=== PATIENT | female | born 1980 | race Hispanic/Latino ===

== ENCOUNTER 2018-03-02 20:50 | Emergency (ER) | payer SELFPAY ==
[2018-03-02 22:30] LABS: Bilirubin Negative (Negative); Blood, Urine Negative (Negative); Clarity CLEAR (Clear); Glucose, Urine (Dipstick) Negative (Negative); Leukocyte Large (Negative); Nitrite Negative (Negative); Protein, Urine (Dipstick) Negative (Neg-Trace); Specific Gravity, Urine 1.005 (1.002-1.036); Urobilinogen 0.2 mg/dL (0.2-1.0)
[2018-03-02 22:37] LABS: Pregnancy Test - Urine (BHCG) Negative (Negative); Pregu Control Background? CLEAR/WHITE (CLR/WHITE); Pregu Control Bar Appear? YES (CONTROL BAR); Specific Gravity 1.005 (1.002-1.036)
[2018-03-02 22:40] LABS: Bacteria/HPF None Seen HPF (None Seen); Hyaline Casts/LPF 0-3 HYALINE CAST LPF (0-3 Hyaline); Pathc Cast-AUWi Flag 0.29 (0-2.49); RBC/HPF 0-3 HPF (0-3); WBC/HPF 0-3 HPF (0-3)
[2018-03-02] MEDS ORDERED: Lidocaine 1% w/Epinephrine 1:100K 20 ML VIAL ONE (23:27)
== END 2018-03-03 00:20 | disposition home or self-care (01) ==
LOC: ERS 20:50
DX: N76.0 Acute vaginitis (principal)
CPT/HCPCS: 36416; 81003; 81015; 81025; 87480; 87491; 87510; 87591; 87660; 99283; J2001

== ENCOUNTER 2018-05-16 04:50 | Inpatient (IN) | payer SELFPAY ==
[2018-05-16 05:50] LABS: CKMB 0.2 ng/mL (0-6.6); Troponin I Less than 0.010 ng/mL (< 0.028)
[2018-05-16 05:52] LABS: ALT (SGPT) 19 U/L (8-55); AST (SGOT) 18 U/L (5-34); Alkaline Phosphatase 85 U/L (40-150); Anion Gap 11 mmol/L (10-20); BUN (Urea Nitrogen) 6 mg/dL (7.0-18.7); Bilirubin, Total 0.6 mg/dL (0.2-1.2); CK (CPK) 29 U/L (29-168); Calc. Creatinine Clearance 0 mL/min (70-130); Calcium 8.5 mg/dL (7.8-10.44); Carbon Dioxide 23 mmol/L (22-29); Chloride 108 mmol/L (98-107); Estimated GFR-MDRD Greater than 90; Globulin 2.8 g/dL (2.4-3.5); Glucose 132 mg/dL (70-105); Potassium 3.2 mmol/L (3.5-5.1); Protein, Total 6.8 g/dL (6.0-8.3); Sodium 139 mmol/L (136-145)
[2018-05-16] MEDS ORDERED: Potassium Chloride 20 MEQ TAB ONE (06:17)
[2018-05-16 06:23] LABS: #Eosinphils 0.1 thou/uL (0.0-0.7); #Lymphocytes 3.2 thou/uL (1.20-3.40); #Monocytes 0.6 thou/uL (0.11-0.59); %Basophils 0.3 % (0.0-1.0); %Eosinophils 1.3 % (0.0-10.0); %Monocytes 5.6 % (0.0-10.0); %Neutrophils 63.9 % (42.0-75.0); Band 6 % (5-11); Elliptocytes SLIGHT = 2-5 cells (100X) (0-1/hpf); Eosinophils 1 % (0-10); Hemoglobin 6.9 g/dL (12.0-16.0); Hypochromia SLIGHT = 6-15 cells (100X) (0-5/hpf); Lymphocytes 35 % (21-51); MDiff Complete? YES; Mean Corpuscular HGB CONC 27.9 g/dL (32.0-36.0); Mean Corpuscular Hemoglobin 16.3 pg (27.0-31.0); Mean Corpuscular Volume 58.3 fL (78.0-98.0); Mean Platelet Volume 9.5 fL (7.4-10.4); Microcytosis MODERATE=15-30 cells (100X) (0-5/hpf); Monocytes 4 % (0-10); Neutrophil 54 % (42-75); PLT Morphology Comment Appears Adequate; Platelet Count 271 thou/uL (130-400); RBC Distribution Width 19.5 % (11.5-14.5); Target Cells SLIGHT = 2-5 cells (100X) (0-1/hpf)
[2018-05-16] MEDS ORDERED: Lorazepam 2 MG/ML VIAL ONE (06:23)
--- NOTE | 2018-05-16 08:50 | RAD ---
PORTABLE CHEST 1 VIEW: DATE: 05/16/18. TIME: 4:48 a.m. HISTORY: Chest pain, shortness of breath, unwitnessed seizure. FINDINGS: Comparison is made with the exam of 03/18/16. The heart size is normal. No focal areas of consolidation, pneumothorax, or pleural effusions are se en. IMPRESSION: No acute process. POS: [facility]
[2018-05-16] MEDS ORDERED: Acetaminophen 325 MG TAB ONE (09:18)
[2018-05-16] MEDS ORDERED: Potassium Chloride 20 MEQ TAB PO SCH (10:30)
--- NOTE | 2018-05-16 12:24 | HP ---
PRIMARY CARE PROVIDER: None. CHIEF COMPLAINT: Shortness of breath. HISTORY OF PRESENT ILLNESS: Ms. Browne is a pleasant 38-year-old lady, who was seen at [facility] on 05/16/2018. She reports that she has a history of seizures over the last 3 years, but has not been on any medications for the same. She also reports occasional chest pain, sometimes on the left side and sometimes on the right side. Around 3:00 a.m., she woke up with difficulty breathing. At the same time, she reports having chest discomfort. She reports that it was over the left side of her chest, radiating to the back, 5/10 at its worst, accompanied by shortness of breath and sweating. She also reports that the chest pain radiated to the jaw. EMS was called, because of patient's symptoms. When EMS arrived, she reportedly had a [id number]-[id number] seizure at home. She reports feeling tired and has generalized weakness. She denies any bleeding anywhere. REVIEW OF SYSTEMS: All other systems reviewed and found to be negative. PAST MEDICAL HISTORY: Seizures. PAST SURGICAL HISTORY: Left ankle surgery. FAMILY HISTORY: Heart disease in her grandfather. SOCIAL HISTORY: No history of tobacco use, alcohol use, or recreational drug use. ALLERGIES: MORPHINE. CURRENT MEDICATIONS: None. PHYSICAL EXAMINATION: GENERAL: Ms. Browne is awake and alert, not in acute distress. VITAL SIGNS: Blood pressure is 111/56, pulse 65, respiratory rate 16, and oxygen saturation 100% on 2 liters of oxygen. She is afebrile. EYES: No scleral icterus. She has conjunctival pallor. ENT: Moist mucosal membranes, no oropharyngeal erythema or exudates. NECK: Supple, nontender, trachea is midline. RESPIRATORY: Accessory muscles of breathing are not active. Chest wall movements are symmetric bilaterally. Lungs are clear to auscultation without wheeze, rhonchi, or crepitations. CARDIOVASCULAR: S1 and S2 are heard, regular. Peripheral pulses palpable. No carotid bruit, no pericardial rub. ABDOMEN: Soft, nontender, bowel sounds heard, no hepatomegaly, no splenomegaly. NEUROLOGIC: Cranial nerves II-XII are intact. Deep tendon reflexes are 2+. MUSCULOSKELETAL: Power is 5/5 in all 4 extremities. SKIN: No rashes or subcutaneous nodules. LYMPHATIC: No cervical lymphadenopathy. PSYCHIATRIC: Normal mood, normal affect, patient is oriented to person, place, and time. LABORATORY DATA: Ms. Browne's labs and investigations were reviewed. I reviewed her electrocardiogram, which shows normal sinus rhythm, no ST changes to suggest an acute coronary syndrome. I also reviewed her chest x-ray, which does not show any pulmonary infiltrates. She also had noncontrast CT scan of the brain, which, by my review, does not show any acute bleed. She has leukocytosis with 11,000 white cells, of which 54% are neutrophils, microcytic anemia with hemoglobin 6.9, normal platelet count, normal sodium, decreased potassium of 3.2 and an unremarkable liver profile. Troponin I is normal. ASSESSMENT AND PLAN: Ms. Browne is a pleasant 38-year-old lady, who was seen at [facility] on 05/16/2018. Her problem list includes: 1. Symptomatic anemia: Ms. Browne is presenting with symptomatic anemia, with chest pain and shortness of breath. She will be admitted to the hospital for further workup and management. She is currently receiving packed RBC transfusion as ordered by emergency room physician. We will initiate studies including iron studies, vitamin B12, and folic acid levels as well as a hemoglobin electrophoresis. We will also check reticulocyte count. We will also check stool for occult blood. 2. Chest pain: First troponin is normal. This is most likely secondary to demand ischemia. We will recheck her troponin. We will also evaluate for symptoms following packed RBC transfusion. 3. Hypokalemia: We will replace potassium. 4. Seizures: We will start patient on phenytoin for seizure disorder. We will consult Neurology Service. LEVEL OF RISK: High. LEVEL OF COMPLEXITY: High. MTDD
[2018-05-16 13:05] LABS: Reticulocyte Count 2.7 % (0.5-1.5)
[2018-05-16 13:12] LABS: Hemoglobin 7.6 g/dL (12.0-16.0)
[2018-05-16 13:15] LABS: Iron 16 ug/dL (50-170); Iron Binding Capacity, Total 411 mcg/dL (265-497)
[2018-05-16 13:21] LABS: Troponin I Less than 0.010 ng/mL (< 0.028)
[2018-05-16 13:22] LABS: BHCG - Serum Negative (NEGATIVE); Pregs Control Background? CLEAR/WHITE (CLR/WHITE); Pregs Control Bar Appear? YES (CONTROL BAR)
[2018-05-16 13:34] LABS: Ferritin 2.61 ng/mL (10-291)
[2018-05-16 13:48] LABS: Folate (Folic Acid) 5.8 ng/mL (7.0-31.4)
--- NOTE | 2018-05-16 13:49 | CON ---
DATE OF CONSULTATION: 05/16/2018 CONSULTING PHYSICIAN: Hospitalist Service. IMPRESSION: 1. Seizures. 2. Anemia. PLAN: 1. Dilantin 300 mg per day. 2. Office followup. HISTORY OF PRESENT ILLNESS: Ms. Browne is a 38-year-old female. She reportedly has had so me intermittent seizures for the last 2 years. Her last prior seizure was in September. She had a wi tnessed seizure in the emergency room. She came in with complaints of chest pain. She was noted to be significantly anemic. She had a witnessed generalized tonic-clonic seizure. She had a CT scan of the brain done, which was unremarkable. She denies any past history of meningitis, encephalitis, he ad injuries, or other neurologic problems. She has not seen any sign of bleeding from the standpoint of her urine or bowels. PAST MEDICAL HISTORY: Otherwise, negative. ALLERGIES: MORPHINE. SOCIAL HISTORY: No tobacco or alcohol. FAMILY HISTORY: Noncontributory. REVIEW OF SYSTEMS: Otherwise, only notable for fatigue. PHYSICAL EXAMINATION: GENERAL: She is a well-nourished, middle-aged woman, in no distress. HEENT: Pupils equal and reactive. Conjunctivae are clear. Oropharynx clear. NECK: Supple. EXTREMITIES: No cyanosis or edema. NEUROLOGIC EXAM: She is primarily Danish speaking. Speech is fluent and clear. Cranial nerves II- XII are intact. There are no focal deficits noted. No abnormal movements were seen. LABORATORY STUDIES: Showed unremarkable electrolytes. Hemoglobin was 6.9. SUMMARY: This is a middle-aged woman with seizures, sporadically for the last 2 years. I agree with trying her on Dilantin. I would be happy to follow up with her as an outpatient.
--- NOTE | 2018-05-16 15:44 | CT ---
PRELIMINARY REPORT/[facility]/EMERGENTY AFTER-HOURS PROCEDURE CT Head Without Intravenous Contrast CLINICAL HISTORY: 38 years old, female; Signs and symptoms; Other: Seizure; Patient HX: Witnessed seizure for 20 second s. Pt C/O headache TECHNIQUE: Axial computed tomography images of the head/brain without intravenous contrast. COMPARISON: No relevant prior studies available. FINDINGS: No definite acute skull fracture. Included paranasal sinuses are essentially clear. No acute intracranial hemorrhage or mass effect. Ventricle size is normal for age. No definite acute infarct by CT. MRI could be more sensitive/specific for detection, as clinically di rected. IMPRESSION: No acute intracranial bleed or mass effect. No definite acute infarct by CT, see above. Thank you for allowing us to participate in the care of your patient. Dictated and Authenticated by: Javi Holliday MD 05/16/2018 6:41 AM Central Time ([place] & [place]) FINAL REPORT CT BRAIN WITHOUT CONTRAST: I agree with the preliminary report given by Dr. Javi Holliday of [facility]. POS: [facility]
[2018-05-16 16:58] LABS: Troponin I Less than 0.010 ng/mL (< 0.028)
[2018-05-16] MEDS ORDERED: Sodium Ferric Gluconate 250 MG in Sodium Chloride 0.9% 250 ML 250 ML IVPB SCH (18:00)
[2018-05-16 18:48] LABS: Hemoglobin 7.1 g/dL (12.0-16.0)
--- NOTE | 2018-05-16 19:49 | CON ---
DATE OF CONSULTATION: 05/16/2018 GI INPATIENT CONSULTATION NOTE REQUESTING PHYSICIAN: Dr. Jimenez. REASON FOR CONSULTATION: Symptomatic anemia. HISTORY OF PRESENT ILLNESS: Latoya Browne is a 38-year-old woman who speaks Czech only. I am seeing her today with the assistance of an diplomatic interpreter. She was admitted to the hospital earlier tod ay after presenting with acute shortness of breath, chest pain, and diaphoresis. Early this morning, she had a witnessed 20-second seizure by EMS. She says she has had seizures over the past 3 years, this is untreated. Upon presentation, laboratory evaluation was significant for severe anemia with h emoglobin 6.9, this is microcytic with an MCV of 58.3. The patient is receiving 1 unit of RBC transf usion and other labs are pending including iron studies, folic acid and hemoglobin electrophoresis. The patient denies any primary gastrointestinal symptoms. There is no abdominal pain, nausea or vomiting, reflux, change in bowel habits, melena or hematochezia. She denies any overt bleeding from anywhere. There is no hematemesis, epistaxis or gross hematuria. She says her menstrual period s last 2-3 days and are fairly regular every month. She says she could not be at this time. She does recall a prior history of anemia during her previous , but she does not recall an y prior workup being done for it. She has never undergone EGD or colonoscopy. She has been trying t o reduce portions in an effort to lose weight and her friends report she has lost about 20 pounds rec ently just in the past few weeks. She says her mother had colon cancer at age 67. REVIEW OF SYSTEMS: Full review of systems including constitutional, head, eyes, ears, nose, throat, GI, , cardiovascular, respiratory, musculoskeletal, and neurologic systems is negative except as no mika in the HPI. PAST MEDICAL HISTORY: Seizure disorder; left ankle surgery; chronic anemia, unclear if this has been extensively worked up before. ALLERGIES: MORPHINE. OUTPATIENT MEDICATIONS: None. FAMILY HISTORY: She says her mother had colon cancer at age 67. Her grandfather had heart disease. SOCIAL HISTORY: No tobacco, alcohol, or drug use. She speaks Czech only. PHYSICAL EXAMINATION: VITAL SIGNS: Temperature 98.0, blood pressure 104/54, 100% oxygen saturation on room air, pulse 74. GENERAL: A 38-year-old woman, lying in bed comfortably, in no distress. She is a bit pale. SKIN: She is pale, no jaundice, no rash visible or palpable. EYES: No scleral icterus. Extraocular movements intact. ENT: Mucous membranes moist, no oral lesions. LYMPH: No submandibular or supraclavicular lymphadenopathy. THYROID: Nontender to palpation. HEART: Regular rate and rhythm. LUNGS: Clear to auscultation bilaterally. ABDOMEN: Bowel sounds present, soft and nontender to palpation throughout. EXTREMITIES: No peripheral edema. VESSELS: Radial pulses 2+ bilaterally. NEUROLOGICAL: Cranial nerves II-XII intact bilaterally. No focal deficits. LABORATORY STUDIES: Hemoglobin 6.9, MCV 58.3, WBC 11.0, platelets 271. Sodium 139, potassium 3.2, B UN 6, creatinine 0.71, glucose 132. LFTs all normal with total bilirubin 0.6, alkaline phosphatase 8 5, AST 18, ALT 19. CK 29, troponin negative. Albumin 4.0 reticulocyte count is 2.7. IMAGING STUDIES: Chest x-ray showed no acute processes. Brain CT is pending. Iron studies, folic a elin, test, hemoglobin electrophoresis and fecal occult blood tests are all ordered and pend ing. ASSESSMENT AND PLAN: 1. Microcytic anemia, severe, symptomatic. 2. Seizure. Looking back to her prior labs, the patient does have a chronic anemia. Back in 2012, hemoglobin was 9 and this was microcytic. In 2013, hemoglobin was 12 and MCV is normal, but then again in 2016, he moglobin was 8 and it was again microcytic. It does not appear this has been extensively worked up b adolfo. We need to await results of iron studies, folic acid, test, hemoglobin electrophore sis and FOBT. I will also add for vitamin B12 level to be drawn. The microcytosis is suggestive of possible iron deficiency anemia. If she is iron deficient, then it would certainly be reasonable to proceed with endoscopic investigation to rule out an occult gastrointestinal bleeding lesion. She do es have this family history of colon cancer in her mother, though her mother was at age 67 at that ti me. Particularly since she had a witnessed seizure earlier today, I would prefer to let her eat today, as sure no recurrence of seizure, and we will follow up the labs with her tomorrow. If she has had no f urther seizure activity and if labs do demonstrate iron deficiency and no other clear etiology of the anemia, then I would recommend giving her bowel preparation tomorrow night in preparation for EGD an d colonoscopy the following day. I discussed this with the patient and her friends and they are in a greement. Thank you for the consultation. We will follow up with the patient with labs tomorrow. Please have her on a clear liquid diet tomorrow morning in case we decide to proceed with bowel preparation tomor row evening.
[2018-05-16 22:53] LABS: Troponin I Less than 0.010 ng/mL (< 0.028)
[2018-05-16] MEDS: Acetaminophen 325 MG TAB PO PRN (23:45)
[2018-05-17] MEDS ORDERED: GoLYTELY 4,000 ml Bottle PO SCH (08:15)
--- NOTE | 2018-05-17 08:20 | PRG ---
DATE OF SERVICE: 05/17/2018 SUBJECTIVE: The patient has had no further seizure activity since yesterday. She continues to compl ain of some pain in her upper right chest as well as her back. There is no abdominal pain, no vomiti ng. Some laboratory studies have returned. Serum test is negative. She is iron deficient and folic acid deficient. OBJECTIVE: VITAL SIGNS: Temperature 97.7, pulse 62, blood pressure 105/53, 100% oxygen saturation on room air. GENERAL: No acute distress. HEART: Regular rate and rhythm. LUNGS: Clear to auscultation bilaterally. ABDOMEN: Soft and nontender to palpation. EXTREMITIES: No peripheral edema. LABORATORY STUDIES: Hemoglobin went up to 7.6 with 1 unit RBC transfusion, back down to 7.1 this mor cristin. Ferritin is only 2.6. Iron 16, TIBC 411. Troponins were negative x3. Vitamin B12 is normal at 454. Folic acid level was low at 5.8. Serum test is negative. Hemoglobin electrophore sis is pending. ASSESSMENT AND PLAN: 1. Iron deficiency anemia, severe, symptomatic. 2. Folic acid deficiency. 3. Seizure disorder. I discussed with the patient this morning that she is both iron deficient and folic acid deficient. Both of these could be contributing to her anemia. In addition, we are waitin g on the results of the hemoglobin electrophoresis to rule out a hemoglobinopathy. I do think it wou ld be worthwhile to proceed with EGD and colonoscopy to rule out occult gastrointestinal lesion under lying her iron deficiency anemia. I would plan to get duodenal biopsies at the time of the procedure to rule out celiac disease. The patient understands and agrees with the plan. We will have her on a clear liquid diet today and administer bowel preparation this evening and plan for the procedure to stephanie. Please call with any questions or concerns.
[2018-05-17] MEDS: Acetaminophen 325 MG TAB PO PRN ×2 (08:23→17:12)
[2018-05-17] MEDS ORDERED: Enoxaparin Sodium 40 MG/0.4 ML SYRINGE SC SCH (09:00)
[2018-05-17] MEDS ORDERED: Ferrous Sulfate 325 MG TAB PO SCH (10:45)
[2018-05-17 10:59] LABS: #Basophils 0.1 thou/uL (0.0-0.2); #Eosinphils 0.2 thou/uL (0.0-0.7); #Lymphocytes 2.9 thou/uL (1.20-3.40); #Monocytes 0.5 thou/uL (0.11-0.59); #Neutrophils 6.1 thou/uL (1.40-6.50); %Basophils 1.2 % (0.0-1.0); %Lymphocytes 29.9 % (21.0-51.0); %Monocytes 4.7 % (0.0-10.0); %Neutrophils 62.2 % (42.0-75.0); Hemoglobin 7.5 g/dL (12.0-16.0); Mean Corpuscular HGB CONC 29.2 g/dL (32.0-36.0); Mean Corpuscular Hemoglobin 17.8 pg (27.0-31.0); Mean Corpuscular Volume 60.8 fL (78.0-98.0); Mean Platelet Volume 9.2 fL (7.4-10.4); Platelet Count 257 thou/uL (130-400); RBC Distribution Width 22.9 % (11.5-14.5); Red Blood Cell (RBC) Count 4.25 mill/uL (4.20-5.40); White Blood Cell (WBC) Count 9.7 thou/uL (4.8-10.8)
[2018-05-17 11:08] LABS: Anion Gap 11 mmol/L (10-20); BUN (Urea Nitrogen) 5 mg/dL (7.0-18.7); Calc. Creatinine Clearance 149 mL/min (70-130); Calcium 8.6 mg/dL (7.8-10.44); Carbon Dioxide 24 mmol/L (22-29); Chloride 106 mmol/L (98-107); Estimated GFR-MDRD Greater than 90; Glucose 156 mg/dL (70-105); Potassium 3.6 mmol/L (3.5-5.1); Sodium 137 mmol/L (136-145)
[2018-05-17 11:13] LABS: Troponin I Less than 0.010 ng/mL (< 0.028)
[2018-05-17 12:05] LABS: Hypochromia MODERATE=16-30 cells (100X) (0-5/hpf); MDiff Complete? YES; Microcytosis MARKED = >30 cells (100X) (0-5/hpf); Ovalocytes SLIGHT = 2-5 cells (100X) (0-1/hpf); PLT Morphology Comment Appears Adequate; Polychromasia MODERATE = 3-4 cells (100X) (0-2/hpf); Tear Drops SLIGHT = 2-5 cells (100X) (0-1/hpf)
[2018-05-17 17:14] LABS: Troponin I Less than 0.010 ng/mL (< 0.028)
[2018-05-18] MEDS: Acetaminophen 325 MG TAB PO PRN (02:10)
[2018-05-18 06:35] LABS: Anion Gap 9 mmol/L (10-20); BUN (Urea Nitrogen) 4 mg/dL (7.0-18.7); Calc. Creatinine Clearance 155 mL/min (70-130); Calcium 8.6 mg/dL (7.8-10.44); Carbon Dioxide 27 mmol/L (22-29); Chloride 107 mmol/L (98-107); Estimated GFR-MDRD Greater than 90; Glucose 140 mg/dL (70-105); Potassium 3.4 mmol/L (3.5-5.1); Sodium 140 mmol/L (136-145)
[2018-05-18 06:41] LABS: Hemoglobin 7.1 g/dL (12.0-16.0); Mean Corpuscular HGB CONC 29.1 g/dL (32.0-36.0); Mean Corpuscular Hemoglobin 17.7 pg (27.0-31.0); Mean Platelet Volume 9.3 fL (7.4-10.4); Platelet Count 252 thou/uL (130-400); RBC Distribution Width 22.4 % (11.5-14.5); Red Blood Cell (RBC) Count 4.01 mill/uL (4.20-5.40); White Blood Cell (WBC) Count 11.2 thou/uL (4.8-10.8)
--- NOTE | 2018-05-18 06:59 | EKG ---
Test Reason : Blood Pressure : / mmHG Vent. Rate : 065 BPM Atrial Rate : 065 BPM P-R Int : 158 ms QRS Dur : 098 ms QT Int : 452 ms P-R-T Axes : 021 -16 003 degrees QTc Int : 470 ms Normal sinus rhythm Inferior infarct , age undetermined (Doubtful) Abnormal ECG When compared with ECG of 16-MAY-2018 05:01, (Unconfirmed) No significant change was found Confirmed by SRI SCOTT ([id number]) on 05/18/2018 6:59:28 AM Referred By: ELEN Confirmed By:SRI SCOTT
[2018-05-18] MEDS: Ferrous Sulfate 325 MG TAB PO SCH (07:59)
[2018-05-18 08:28] LABS: #Eosinphils 0.2 thou/uL (0.0-0.7); #Lymphocytes 2.7 thou/uL (1.20-3.40); #Monocytes 0.6 thou/uL (0.11-0.59); #Neutrophils 7.8 thou/uL (1.40-6.50); %Basophils 0.4 % (0.0-1.0); %Eosinophils 1.8 % (0.0-10.0); %Lymphocytes 23.7 % (21.0-51.0); %Monocytes 4.9 % (0.0-10.0); %Neutrophils 69.3 % (42.0-75.0); Anisocytosis MODERATE=16-30 cells (100X) (0-5/hpf); Hypochromia SLIGHT = 6-15 cells (100X) (0-5/hpf); MDiff Complete? YES; Microcytosis MODERATE=15-30 cells (100X) (0-5/hpf); Ovalocytes MODERATE= 6-15 cells (100X) (0-1/hpf); PLT Morphology Comment Appears Adequate; Polychromasia MODERATE = 3-4 cells (100X) (0-2/hpf); Tear Drops SLIGHT = 2-5 cells (100X) (0-1/hpf)
--- NOTE | 2018-05-18 10:51 | PDOC.PN ---
- Subjective Encounter Start Date: 05/18/18 Encounter Start Time: 07:00 Pt seen for followup re: symptomatic anemia. Denies chest pain. - Objective MAR Reviewed: Yes Vital Signs & Weight: Vital Signs (12 hours) Temp Pulse Resp BP Pulse Ox 05/18/18 08:00 98.3 F 61 16 05/18/18 07:35 98.3 F 61 16 97/51 L 98 05/18/18 04:00 99.2 F 74 18 110/51 L 96 05/18/18 00:00 98.4 F 66 18 99/50 L 100 Weight Admit Weight 197 lb Weight 196 lb 4.8 oz I&O: 05/17/18 05/18/18 05/19/18 06:59 06:59 06:59 Intake Total 720 5510 Balance 720 5510 Result Diagrams: 05/18/18 05:47 05/18/18 05:47 EKG Reviewed by me: Yes (Tele: NSR) Phys Exam - Physical Examination Constitutional: NAD HEENT: moist MMs, sclera anicteric, oral pharynx no lesions, 2+ tonsils conjunctival pallor Neck: no nodes, no JVD, supple, full ROM Respiratory: no wheezing, no rales, no rhonchi, clear to auscultation bilateral Cardiovascular: RRR, no rub S1, s2 Gastrointestinal: soft, non-tender, no distention, positive bowel sounds Neurological: moves all 4 limbs Psychiatric: normal affect, A&O x 3 Dx/Plan (1) Symptomatic anemia Code(s): D64.9 - ANEMIA, UNSPECIFIED Status: Acute Comment: s/p pRBC transfusion, iron infusion. For scope today. (2) Hypokalemia Code(s): E87.6 - HYPOKALEMIA Status: Acute Comment: replace potassium (3) Seizure Code(s): R56.9 - UNSPECIFIED CONVULSIONS Status: Acute Comment: pt has been started on phenytoin (4) Chest pain Code(s): R07.9 - CHEST PAIN, UNSPECIFIED Status: Resolved - Plan * . Review of Systems - Review of Systems Constitutional: negative: fever, chills, sweats, weakness, malaise Respiratory: negative: Cough, Shortness of Breath, SOB with Excertion, Pleuritic Pain, Wheezing Cardiovascular: negative: chest pain, palpitations, orthopnea, paroxysmal nocturnal dyspnea, edema, light headedness Gastrointestinal: negative: Nausea, Vomiting, Abdominal Pain, Diarrhea, Constipation, Melena, Hematochezia Genitourinary: negative: Dysuria, Frequency, Incontinence, Hematuria, Retention Skin: negative: Rash, Lesions, Aubrey, Bruising Neurological: Other (headache) - Medications/Allergies Allergies/Adverse Reactions: Allergies Allergy/AdvReac Type Severity Reaction Status Date / Time morphine Allergy Verified 05/16/18 11:08 Medications: Current Medications Acetaminophen (Tylenol) 650 mg PO Q6H PRN PRN Reason: Headache/Fever or Pain Last Admin: 05/18/18 02:10 Dose: 650 mg Ferrous Sulfate (Feosol) 325 mg PO QAM-[facility] Last Admin: 05/18/18 07:59 Dose: 325 mg Phenytoin Sodium (Dilantin Er) 100 mg PO TID [facility] Last Admin: 05/18/18 07:59 Dose: 100 mg
[2018-05-18] MEDS ORDERED: Ondansetron HCl/PF 4 MG/2 ML Vial IVP PRN (11:09)
[2018-05-18] MEDS ORDERED: Promethazine HCl 25 MG/ML VIAL SLOW IVP PRN (11:09)
[2018-05-18] MEDS ORDERED: Promethazine HCl 25 MG/ML VIAL IM PRN (11:09)
[2018-05-18] MEDS ORDERED: Potassium Chloride 20 MEQ TAB PO SCH (11:15)
--- NOTE | 2018-05-18 12:36 | OP ---
DATE OF PROCEDURE: 05/18/2018 SURGEON: Donald Bailey M.D. PREOPERATIVE DIAGNOSES: 1. Iron deficiency anemia, chronic. 2. Fecal occult blood test negative. POSTOPERATIVE DIAGNOSES: 1. Mild nodular gastritis, appearance is very consistent with H. pylori, biopsies obtained. 2. Normal duodenum to the third portion. Biopsies obtained to rule out celiac. 3. No evidence or source of GI bleeding or blood loss in the upper endoscopy. 4. Colonoscopy notable for diminutive polyp in the descending colon by cold snare polypectomy. 5. No findings to suggest a source of chronic gastrointestinal blood loss in the colon. RECOMMENDATIONS: Await biopsies. If there are no findings of celiac disease, I would strongly consi oral gynecologic sources for this patient's iron deficiency anemia in light of her negative endoscopy findings, negative history for GI bleeding and negative fecal occult blood test. ANESTHESIA: TIA. PROCEDURE IN DETAIL: After the patient was informed of the risks, benefits, possible complications o f endoscopy including perforation, bleeding, reaction to medication, and aspiration, informed consent was obtained. The patient brought to endoscopy suite where she was sedated in gradual fashion. Onc e she was comfortable endoscope was advanced in the orifice, advanced in the esophagus, stomach, seco nd and third portion of duodenum and slowly removed. There was good visualization of mucosa. There were no masses, lesions or arteriovenous malformations. There was mild gastritis, but with a very fi ne reticular nodular pattern without erythema, exudate or ulcers or erosions. Biopsies were taken to rule out H. pylori. Retroflexed views in the stomach were normal. The esophagus was normal. Duode num was normal to the third portion. Biopsies were taken to rule out celiac. The scope was then rem italo. The patient was turned in the room and a rectal exam was performed. The endoscope was advanced in th e anal canal to the colon to the cecum was identified by the ileocecal valve and appendiceal orifice. There was 1 diminutive polyp in the descending colon which was removed by cold snare polypectomy. There was also some mild diverticulosis coli. Retroflexed views in the rectum were normal. The scop e was removed. The patient tolerated the procedure well with no complications.
[2018-05-18] MEDS ORDERED: PHENYLEPHRINE-NS 100 MCG/ML 10 ML SYRINGE ONE (14:25)
[2018-05-18] MEDS ORDERED: PROPOFOL 200 MG/20 ML VIAL ONE (14:25)
[2018-05-18] MEDS ORDERED: ePHEDrine/0.9% NaCl/PF SYRINGE 50 mg/10 ml ONE (14:25)
--- NOTE | 2018-05-18 14:28 | PDOC.PN ---
- Subjective Encounter Start Date: 05/17/18 Encounter Start Time: 15:00 (Late entry) Pt seen for followup re: symptomatic anemia. feels better. Occ chest pain, no fevers or chills. - Objective Vital Signs & Weight: Vital Signs (12 hours) Temp Pulse Resp BP Pulse Ox 05/18/18 12:46 98.1 F 68 16 107/59 L 100 05/18/18 08:00 98.3 F 61 16 05/18/18 07:35 98.3 F 61 16 97/51 L 98 05/18/18 04:00 99.2 F 74 18 110/51 L 96 Weight Admit Weight 197 lb Weight 196 lb 4.8 oz I&O: 05/17/18 05/18/18 05/19/18 06:59 06:59 06:59 Intake Total 720 5510 Balance 720 5510 Result Diagrams: 05/18/18 05:47 05/18/18 05:47 Phys Exam - Physical Examination Constitutional: NAD HEENT: moist MMs, sclera anicteric, oral pharynx no lesions, 2+ tonsils pallor Neck: no nodes, no JVD, supple, full ROM Respiratory: no wheezing, no rales, no rhonchi, clear to auscultation bilateral Cardiovascular: RRR, no rub S1, s2 Gastrointestinal: soft, non-tender, no distention, positive bowel sounds Musculoskeletal: no edema Neurological: moves all 4 limbs Lymphatic: no nodes Psychiatric: normal affect Dx/Plan (1) Symptomatic anemia Code(s): D64.9 - ANEMIA, UNSPECIFIED Status: Acute Comment: s/p pRBC transfusion, low iron, for iron treatment. (2) Seizure Code(s): R56.9 - UNSPECIFIED CONVULSIONS Status: Acute Comment: started on phenytoin (3) Chest pain Code(s): R07.9 - CHEST PAIN, UNSPECIFIED Status: Acute Comment: likely due to demand ischemia, check EKG, troponin - Plan * . Review of Systems - Review of Systems Constitutional: negative: fever, chills, sweats, weakness, malaise Respiratory: negative: Cough, Shortness of Breath, SOB with Excertion, Pleuritic Pain, Wheezing Cardiovascular: chest pain. negative: palpitations, orthopnea, paroxysmal nocturnal dyspnea, edema, light headedness Gastrointestinal: negative: Nausea, Vomiting, Abdominal Pain, Diarrhea, Constipation, Melena, Hematochezia Genitourinary: negative: Dysuria, Frequency, Incontinence, Hematuria, Retention Musculoskeletal: negative: Neck Pain, Shoulder Pain, Arm Pain, Back Pain, Hand Pain, Leg Pain, Foot Pain - Medications/Allergies Allergies/Adverse Reactions: Allergies Allergy/AdvReac Type Severity Reaction Status Date / Time morphine Allergy Verified 05/16/18 11:08 Medications: Current Medications Acetaminophen (Tylenol) 650 mg PO Q6H PRN PRN Reason: Headache/Fever or Pain Last Admin: 05/18/18 02:10 Dose: 650 mg Ferrous Sulfate (Feosol) 325 mg PO [facility]AM[facility] Last Admin: 05/18/18 07:59 Dose: 325 mg Phenytoin Sodium (Dilantin Er) 100 mg PO TID [facility] Last Admin: 05/18/18 07:59 Dose: 100 mg
[2018-05-18 20:10] LABS: Hemoglobin A 98.2 % (96.4-98.8); Hemoglobin A2 1.8 % (1.8-3.2); Hemoglobin F 0 % (0.0-2.0); Interpretation Note: (.)
[2018-05-19 05:51] LABS: Anion Gap 11 mmol/L (10-20); BUN (Urea Nitrogen) 6 mg/dL (7.0-18.7); Calc. Creatinine Clearance 148 mL/min (70-130); Carbon Dioxide 26 mmol/L (22-29); Chloride 105 mmol/L (98-107); Estimated GFR-MDRD Greater than 90; Glucose 119 mg/dL (70-105); Potassium 3.8 mmol/L (3.5-5.1); Sodium 138 mmol/L (136-145)
[2018-05-19 06:18] LABS: #Basophils 0.1 thou/uL (0.0-0.2); #Eosinphils 0.2 thou/uL (0.0-0.7); #Lymphocytes 3.1 thou/uL (1.20-3.40); #Monocytes 0.5 thou/uL (0.11-0.59); #Neutrophils 6.8 thou/uL (1.40-6.50); %Basophils 0.8 % (0.0-1.0); %Eosinophils 1.8 % (0.0-10.0); %Lymphocytes 28.8 % (21.0-51.0); %Neutrophils 63.7 % (42.0-75.0); Burr Cells SLIGHT = 2-5 cells (100X) (0-1/hpf); Hemoglobin 7.8 g/dL (12.0-16.0); Hypochromia SLIGHT = 6-15 cells (100X) (0-5/hpf); MDiff Complete? YES; Mean Corpuscular HGB CONC 29.4 g/dL (32.0-36.0); Mean Corpuscular Hemoglobin 18.1 pg (27.0-31.0); Mean Corpuscular Volume 61.4 fL (78.0-98.0); Mean Platelet Volume 9.3 fL (7.4-10.4); Microcytosis MODERATE=15-30 cells (100X) (0-5/hpf); Ovalocytes SLIGHT = 2-5 cells (100X) (0-1/hpf); PLT Morphology Comment Appears Adequate; Platelet Count 258 thou/uL (130-400); RBC Distribution Width 23.6 % (11.5-14.5); Red Blood Cell (RBC) Count 4.32 mill/uL (4.20-5.40); White Blood Cell (WBC) Count 10.7 thou/uL (4.8-10.8)
[2018-05-19] MEDS: Ferrous Sulfate 325 MG TAB PO SCH (08:23)
[2018-05-19 12:48] VITALS: BMI 29.8
--- NOTE | 2018-05-19 18:17 | PDOC.PN ---
- Subjective Encounter Start Date: 05/19/18 Encounter Start Time: 10:40 Pt seen for followup re; chest pain. Reports on and off chest pain, no fevers or chills. - Objective Vital Signs & Weight: Vital Signs (12 hours) Temp Pulse Resp BP Pulse Ox 05/19/18 11:47 97.8 F 65 16 107/63 98 05/19/18 07:47 98.1 F 70 16 05/19/18 07:43 98.1 F 70 16 94/50 L 95 Weight Admit Weight 197 lb Weight 196 lb 4.8 oz I&O: 05/18/18 05/19/18 05/20/18 06:59 06:59 06:59 Intake Total 5510 1015 Balance 5510 1015 Result Diagrams: 05/19/18 05:07 05/19/18 05:07 Phys Exam - Physical Examination Constitutional: NAD HEENT: moist MMs, sclera anicteric, 2+ tonsils pallor Neck: no nodes, no JVD, supple, full ROM Respiratory: no wheezing, no rales, no rhonchi, clear to auscultation bilateral Cardiovascular: RRR, no rub S1, s2 Gastrointestinal: soft, non-tender, no distention, positive bowel sounds Neurological: moves all 4 limbs Psychiatric: normal affect Dx/Plan (1) Chest pain Code(s): R07.9 - CHEST PAIN, UNSPECIFIED Status: Acute Comment: stress test to r/o cardiac etiology (2) Symptomatic anemia Code(s): D64.9 - ANEMIA, UNSPECIFIED Status: Acute Comment: hemogolobin stable, continue iron (3) Seizure Code(s): R56.9 - UNSPECIFIED CONVULSIONS Status: Acute Comment: continue phenytoin - Plan * . Review of Systems - Review of Systems Constitutional: negative: fever, chills, sweats, weakness, malaise Respiratory: negative: Cough, Shortness of Breath, SOB with Excertion, Pleuritic Pain, Wheezing Cardiovascular: chest pain. negative: palpitations, orthopnea, paroxysmal nocturnal dyspnea, edema, light headedness Gastrointestinal: negative: Nausea, Vomiting, Abdominal Pain, Diarrhea, Constipation, Melena, Hematochezia Genitourinary: negative: Dysuria, Frequency, Incontinence, Hematuria, Retention Skin: negative: Rash, Lesions, Aubrey, Bruising - Medications/Allergies Allergies/Adverse Reactions: Allergies Allergy/AdvReac Type Severity Reaction Status Date / Time morphine Allergy Verified 05/16/18 11:08 Medications: Current Medications Acetaminophen (Tylenol) 650 mg PO Q6H PRN PRN Reason: Headache/Fever or Pain Last Admin: 05/18/18 02:10 Dose: 650 mg Ferrous Sulfate (Feosol) 325 mg PO QAM[facility] Last Admin: 05/19/18 08:23 Dose: 325 mg Phenytoin Sodium (Dilantin Er) 100 mg PO TID [facility] Last Admin: 05/19/18 16:08 Dose: Not Given
[2018-05-20 06:13] LABS: Anion Gap 11 mmol/L (10-20); BUN (Urea Nitrogen) 8 mg/dL (7.0-18.7); Calc. Creatinine Clearance 137 mL/min (70-130); Carbon Dioxide 26 mmol/L (22-29); Chloride 104 mmol/L (98-107); Estimated GFR-MDRD 83; Glucose 145 mg/dL (70-105); Potassium 3.8 mmol/L (3.5-5.1); Sodium 137 mmol/L (136-145)
[2018-05-20 06:47] LABS: Anisocytosis MODERATE=16-30 cells (100X) (0-5/hpf); Band 2 % (5-11); Elliptocytes SLIGHT = 2-5 cells (100X) (0-1/hpf); Eosinophils 2 % (0-10); Hemoglobin 8.1 g/dL (12.0-16.0); Hypochromia SLIGHT = 6-15 cells (100X) (0-5/hpf); Large Platelets SLIGHT; Lymphocytes 28 % (21-51); MDiff Complete? YES; Mean Corpuscular HGB CONC 29.3 g/dL (32.0-36.0); Mean Corpuscular Hemoglobin 18.1 pg (27.0-31.0); Mean Corpuscular Volume 61.9 fL (78.0-98.0); Mean Platelet Volume 9.4 fL (7.4-10.4); Microcytosis MODERATE=15-30 cells (100X) (0-5/hpf); Monocytes 5 % (0-10); Neutrophil 63 % (42-75); Nucleated RBC 1 % (0); PLT Morphology Comment Appears Adequate; Platelet Count 247 thou/uL (130-400); Polychromasia SLIGHT = 2-3 cells (100X) (0-2/hpf); RBC Distribution Width 25.7 % (11.5-14.5); Red Blood Cell (RBC) Count 4.48 mill/uL (4.20-5.40); White Blood Cell (WBC) Count 10.8 thou/uL (4.8-10.8)
[2018-05-20] MEDS ORDERED: Heparin 0 ML ONE (06:47)
[2018-05-20] MEDS: Ferrous Sulfate 325 MG TAB PO SCH (08:48)
[2018-05-20 11:46] VITALS: BP 106/59; TEMP 98.4
--- NOTE | 2018-05-20 13:38 | NM ---
RADIONUCLIDE STRESS REST MYOCARDIAL PERFUSION SCAN WITH CT ATTENUATION CORRECTION AND SPECT IMAGING LEFT VENTRICULAR WALL MOTION EVALUATION AND EJECTION FRACTION: History: Chest pain. FINDINGS: Adenosine protocol. Homogeneous uptake of radiotracer throughout the left ventricular myocardium on t he stress and rest images. No focal perfusion defect or reversibility. QGS analysis of gated SPECT im ages shows no focal wall motion abnormalities. Ejection fraction calculated at 66%. IMPRESSION: Normal myocardial perfusion scan. Normal LVEF POS: [facility]
[2018-05-20] MEDS ORDERED: ADENOSINE 60 MG/20 ML VIAL ONE (13:45)
[2018-05-20 14:46] LABS: Albumin 4.4 g/dL (3.5-5.0); Dilantin 5.3 ug/mL (10.0-20.0)
--- NOTE | 2018-05-20 23:34 | DIS ---
DATE OF ADMISSION: 05/16/2018 DATE OF DISCHARGE: 05/20/2018 PRIMARY CARE PHYSICIAN: Dr. Evie Church. DISCHARGE DIAGNOSES: 1. Symptomatic anemia. 2. Chest pain. 3. Iron deficiency. 4. Hypokalemia. 5. Seizure. CONSULTATIONS DURING THIS HOSPITALIZATION: Gastroenterology, Dr. Javi Fernandez and neurology, Dr. Zachary Nunez. DISCHARGE MEDICATIONS: Ferrous sulfate 325 mg daily, phenytoin sodium 200 mg 2 times a day. CONDITION OF PATIENT ON THE DAY OF DISCHARGE: Stable. I assess Ms. Browne on the day of discharge. She denies any chest pain or shortness of breath. Vital signs are stable. S1 and S2 are heard, re gular. Lungs are clear to auscultation bilaterally. HOSPITAL COURSE: Ms. Browne is a pleasant 38-year-old lady who was admitted to [facility] on 05/16/2018 for symptomatic anemia and seizure. Please refer to my history and physi jasmyn note dated 05/16/2018 for further details. She was seen by Neurology Service. She was started o n phenytoin. Her phenytoin level was checked on the day of discharge and was subtherapeutic. She wa s initially started on phenytoin 100 mg 3 times a day. This dose has been increased to 200 mg two ti mes a day on the day of discharge. She will need her phenytoin levels checked in 5 days' time to her primary care provider's office. In terms of anemia, she was found to be iron-deficient. She received intravenous iron. She was also started on oral iron. She also received packed RBC transfusion. Her hemoglobin remained stable. She underwent gastroscopy on 05/18/2018, which showed mild nodular gastritis, appearance very consist ent with Helicobacter pylori, biopsies were obtained. She had normal duodenum to the third portion. Biopsies were obtained to rule out celiac disease. There was no evidence or source of GI bleeding o r blood loss in the upper endoscopy. She also had colonoscopy which was notable for a diminutive zachary yp in the descending colon, she had cold-snare polypectomy. 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 Gastroenterology Service has ordered test to rule out celiac disease and we will follow up with patient as outpatient. Stomach biopsy showed chronic inactive gastritis. No Helicobacter pylori organisms were identified. Colon polyp was tubular adenoma. There was no high- grade dysplasia or malignancy. She had on and off chest pain during this hospitalization. For that reason, she underwent nuclear st ress test, which was normal. Left ventricular ejection fraction was 66%. Many thanks for allowing me to participate in your patient's care. Please feel free to contact me wi th any questions or concerns. On the day of discharge, she has sodium 137, potassium 3.8, creatinine 0.77, phenytoin level 5.3. Wh ite count 10,800, hemoglobin 8.1, and platelet count 247,000. DISCHARGE DESTINATION: Home. TOTAL AMOUNT OF TIME SPENT COORDINATING THIS DISCHARGE: 33 minutes.
== END 2018-05-20 16:21 | disposition home or self-care (01) | DRG 812 ==
LOC: ERS 04:50 → 2SE 07:28
PROVIDERS: ADMIT Internal Medicine; ATTEND Internal Medicine
PROC: 30233N1 Transfusion of Nonautologous Red Blood Cells into Peripheral Vein, Percutaneous Approach (ICD-10-PCS; 2018-05-16)
PROC: 0DB98ZX Excision of Duodenum, Via Natural or Artificial Opening Endoscopic, Diagnostic (ICD-10-PCS; principal; 2018-05-18)
PROC: 0DB68ZX Excision of Stomach, Via Natural or Artificial Opening Endoscopic, Diagnostic (ICD-10-PCS; 2018-05-18)
PROC: 0DBM8ZX Excision of Descending Colon, Via Natural or Artificial Opening Endoscopic, Diagnostic (ICD-10-PCS; 2018-05-18)
DX: D50.9 Iron deficiency anemia, unspecified (principal); G40.409 Other generalized epilepsy and epileptic syndromes, not intractable, without status epilepticus; E87.6 Hypokalemia; K29.50 Unspecified chronic gastritis without bleeding; K57.30 Diverticulosis of large intestine without perforation or abscess without bleeding; D12.4 Benign neoplasm of descending colon; R07.9 Chest pain, unspecified; Z88.5 Allergy status to narcotic agent
CPT/HCPCS: 36415; 36430; 70450; 71045; 78452; 80048; 80053; 80185; 82040; 82274; 82553; 82607; 82728; 82746; 83021; 83516; 83540; 83550; 84484; 84703; 85025; 85046; 85060; 86850; 86900; 86901; 88305; 88312; 93005; 93010; 93017; 94760; 96374; A9500; J0153; J1644; J2060; J2704; J2916; J7050; P9016

== ENCOUNTER 2019-02-03 21:33 | Emergency (ER) | payer SELFPAY ==
[2019-02-03] MEDS ORDERED: Ketorolac Tromethamine 30 MG/ML VIAL ONE (22:30)
[2019-02-03] MEDS ORDERED: Adacel (T-DAP) 0.5 ML SYRINGE ONE (22:30)
== END 2019-02-03 23:02 | disposition home or self-care (01) ==
LOC: ERS 21:33
DX: T23.102A Burn of first degree of left hand, unspecified site, initial encounter (principal); X11.8XXA Contact with other hot tap-water, initial encounter
CPT/HCPCS: 90471; 90715; 96372; J1885

== ENCOUNTER 2019-04-06 08:17 | Outpatient (CLI) | payer MEDICAID ==
--- NOTE | 2019-04-06 08:46 | MMO ---
Bilateral MAMMO Bilat Diag DDI+ABBEY. CLINICAL HISTORY: Patient is 38 years old and is seen for diagnostic exam and pain in the right breast. The patient has no family history of breast cancer. The patient has no personal history of cancer. VIEWS: The views performed were: bilateral craniocaudal with tomosynthesis; bilateral mediolateral oblique with tomosynthesis; and bilateral mediolateral with tomosynthesis. MAMMOGRAM FINDINGS: There are scattered fibroglandular densities. There are stable benign appearing calcifications seen in both breasts. There are no suspicious masses, suspicious calcifications, or new areas of architectural distortion. IMPRESSION: THERE IS NO MAMMOGRAPHIC EVIDENCE OF MALIGNANCY. A ROUTINE FOLLOW-UP MAMMOGRAM IN 1 YEAR IS RECOMMENDED. THE RESULTS OF THIS EXAM WERE SENT TO THE PATIENT. ACR BI-RADS Category 2 - Benign finding MAMMOGRAPHY NOTE: 1. A negative mammogram report should not delay a biopsy if a dominant of clinically suspicious mass is present. 2. Approximately 10% to 15% of breast cancers are not detected by mammography. 3. Adenosis and dense breasts may obscure an underlying neoplasm.
== END 2019-04-06 08:18 | disposition home or self-care (01) ==
LOC: BICMAMMO 08:17
PROVIDERS: ATTEND Family Medicine
DX: N64.4 Mastodynia (principal)
CPT/HCPCS: 77066; G0279

== ENCOUNTER 2019-05-04 00:54 | Emergency (ER) | payer MEDICAID, SELFPAY ==
[2019-05-04 03:00] LABS: Pregnancy Test - Urine (BHCG) Negative (Negative); Pregu Control Background? CLEAR/WHITE (CLR/WHITE); Pregu Control Bar Appear? YES (CONTROL BAR); Specific Gravity 1.008 (1.002-1.036)
[2019-05-04 03:01] LABS: Bacteria/HPF None Seen HPF (None Seen); Bilirubin Negative (Negative); Blood, Urine Negative (Negative); Clarity Clear (Clear); Glucose, Urine (Dipstick) Normal (Negative); Leukocyte 25 Leu/uL (Negative); Nitrite Negative (Negative); Protein, Urine (Dipstick) Negative (Neg-Trace); RBC/HPF 0-3 HPF (0-3); Squamous Epithelial 0-3 HPF (0-3); Urobilinogen Normal mg/dL (Less than 2); WBC/HPF 0-3 HPF (0-3)
[2019-05-04] MEDS ORDERED: Fluconazole 100 MG TAB PO SCH (03:45)
[2019-05-04 23:05] LABS: Chlamydia by PCR Not Detected (NotDetected); GC by PCR Not Detected (NotDetected)
== END 2019-05-04 03:56 | disposition home or self-care (01) ==
LOC: ERS 00:54
DX: B37.3 Candidiasis of vulva and vagina (principal)
CPT/HCPCS: 81003; 81015; 81025; 87480; 87491; 87510; 87591; 87660; 99283

== ENCOUNTER 2020-01-05 00:34 | Emergency (ER) | payer SELFPAY ==
[2020-01-05] MEDS ORDERED: Ondansetron ODT 8 MG TAB ONE (00:46)
[2020-01-05] MEDS ORDERED: Ondansetron ODT 4 MG TAB ONE (00:50)
== END 2020-01-05 01:54 | disposition home or self-care (01) ==
LOC: ERS 00:34
DX: J02.9 Acute pharyngitis, unspecified (principal); R11.2 Nausea with vomiting, unspecified
CPT/HCPCS: 87081; 87430; 87804; 99283; Q0162

== ENCOUNTER 2020-02-19 14:11 | Emergency (ER) | payer SELFPAY ==
[2020-02-19 15:54] LABS: Bilirubin Negative (Negative); Blood, Urine Negative (Negative); Clarity Turbid (Clear); Glucose, Urine (Dipstick) >=1000 mg/dL (Negative); Leukocyte 500 Leu/uL (Negative); Nitrite Negative (Negative); Pregnancy Test - Urine (BHCG) Negative (Negative); Pregu Control Background? CLEAR/WHITE (CLR/WHITE); Pregu Control Bar Appear? YES (CONTROL BAR); Protein, Urine (Dipstick) 10 mg/dL (Neg-Trace); RBC/HPF 0-3 HPF (0-3); Renal Epithelial 0-3 HPF (None Seen); Specific Gravity 1.014 (1.002-1.036); Urobilinogen Normal mg/dL (Less than 2); WBC/HPF 21-50 HPF (0-3); Yeast-Budding Rare HPF (None Seen)
[2020-02-19 15:58] LABS: Bacteria/HPF 4+ HPF (None Seen)
== END 2020-02-19 17:29 | disposition home or self-care (01) ==
LOC: ERS 14:11
DX: B37.49 Other urogenital candidiasis (principal); E11.9 Type 2 diabetes mellitus without complications
CPT/HCPCS: 36416; 81003; 81015; 81025; 99283

== ENCOUNTER 2020-06-12 00:38 | Emergency (ER) | payer SELFPAY ==
[2020-06-12 02:07] LABS: Bacteria/HPF None Seen HPF (None Seen); Bilirubin Negative (Negative); Blood, Urine 2+ (Negative); Clarity Clear (Clear); Glucose, Urine (Dipstick) Normal (Negative); Ketone, Urine Negative (Negative); Leukocyte 250 Leu/uL (Negative); Nitrite Negative (Negative); Protein, Urine (Dipstick) Negative (Neg-Trace); RBC/HPF 0-3 HPF (0-3); Specific Gravity, Urine 1.006 (1.002-1.036); Squamous Epithelial 0-3 HPF (0-3); Urobilinogen Normal mg/dL (Less than 2); WBC/HPF 0-3 HPF (0-3)
[2020-06-12 22:07] LABS: Chlamydia by PCR Not Detected (NotDetected); GC by PCR Not Detected (NotDetected)
== END 2020-06-12 02:30 | disposition home or self-care (01) ==
LOC: ERS 00:38
DX: N89.8 Other specified noninflammatory disorders of vagina (principal)
CPT/HCPCS: 81003; 81015; 87480; 87491; 87510; 87591; 87660; 99283

== ENCOUNTER 2020-06-26 22:20 | Emergency (ER) | payer SELFPAY ==
[2020-06-26 22:49] LABS: Bilirubin Negative (Negative); Blood, Urine Negative (Negative); Clarity Clear (Clear); Glucose, Urine (Dipstick) 300 mg/dL (Negative); Ketone, Urine Negative (Negative); Leukocyte 250 Leu/uL (Negative); Nitrite Negative (Negative); Protein, Urine (Dipstick) Negative (Neg-Trace); RBC/HPF 0-3 HPF (0-3); Renal Epithelial 0-3 HPF (None Seen); Specific Gravity, Urine 1.013 (1.002-1.036); Urobilinogen Normal mg/dL (Less than 2); WBC/HPF 0-3 HPF (0-3)
[2020-06-26 22:55] LABS: Bacteria/HPF Rare-Few HPF (None Seen)
[2020-06-26 23:13] LABS: Pregnancy Test - Urine (BHCG) Negative (Negative); Pregu Control Background? CLEAR/WHITE (CLR/WHITE); Pregu Control Bar Appear? YES (CONTROL BAR); Specific Gravity 1.013 (1.002-1.036)
[2020-06-27] MEDS ORDERED: cefTRIAXone\\ROCEPHIN 250 MG VIAL ONE (00:02)
[2020-06-27] MEDS ORDERED: Lidocaine 1% PF 5 ML VIAL ONE (00:02)
[2020-06-28 21:49] LABS: Chlamydia by PCR Not Detected (NotDetected); GC by PCR Not Detected (NotDetected)
== END 2020-06-27 00:36 | disposition home or self-care (01) ==
LOC: ERS 22:20
DX: N73.9 Female pelvic inflammatory disease, unspecified (principal)
CPT/HCPCS: 81003; 81015; 81025; 87086; 87480; 87491; 87510; 87591; 87660; 96372; 99284; J0696

== ENCOUNTER 2020-10-06 16:27 | Emergency (ER) | payer SELFPAY ==
[~2020-10-06 16:27] MED LIST: Iopamidol-370 76% 500 ML 1 ML ONE
[2020-10-06] MEDS ORDERED: Acetaminophen 500 MG TAB ONE (17:19)
--- NOTE | 2020-10-06 17:39 | RAD ---
EXAM: CHEST ONE VIEW HISTORY: Cough and fever. Chest soreness and chills. COMPARISON: January 2018 FINDINGS: The cardiac silhouette and pulmonary vasculature are within normal limits. The lungs are clear. The o sseous structures are intact. No interval change from prior study. IMPRESSION: No acute cardiopulmonary process.
[2020-10-06 17:48] LABS: #Basophils 0.1 thou/uL (0.0-0.2); #Eosinphils 0.1 thou/uL (0.0-0.7); #Lymphocytes 1.7 thou/uL (1.20-3.40); #Monocytes 0.5 thou/uL (0.11-0.59); #Neutrophils 5.8 thou/uL (1.40-6.50); %Basophils 0.6 % (0.0-1.0); %Eosinophils 0.9 % (0.0-10.0); %Lymphocytes 20.7 % (21.0-51.0); %Monocytes 6.6 % (0.0-10.0); %Neutrophils 71.1 % (42.0-75.0); Hemoglobin 7.2 g/dL (12.0-16.0); Mean Corpuscular HGB CONC 27.4 g/dL (32.0-36.0); Mean Corpuscular Hemoglobin 16.5 pg (27.0-31.0); Mean Corpuscular Volume 60.3 fL (78.0-98.0); Mean Platelet Volume 11.7 fL (7.4-10.4); Platelet Count 164 thou/uL (130-400); RBC Distribution Width 20.2 % (11.5-14.5); Red Blood Cell (RBC) Count 4.37 mill/uL (4.20-5.40); White Blood Cell (WBC) Count 8.2 thou/uL (4.8-10.8)
[2020-10-06 17:59] LABS: BHCG - Serum Negative (NEGATIVE)
[2020-10-06 18:00] LABS: Pregs Control Background? CLEAR/WHITE (CLR/WHITE); Pregs Control Bar Appear? YES (CONTROL BAR)
[2020-10-06 18:05] LABS: ALT (SGPT) 35 U/L (8-55); AST (SGOT) 37 U/L (5-34); Albumin 3.9 g/dL (3.5-5.0); Alkaline Phosphatase 96 U/L (40-110); Anion Gap 12 mmol/L (10-20); BUN (Urea Nitrogen) 7 mg/dL (7.0-18.7); Bilirubin, Total 1.1 mg/dL (0.2-1.2); Calc. Creatinine Clearance 0 mL/min (70-130); Calcium 8.1 mg/dL (7.8-10.44); Carbon Dioxide 23 mmol/L (22-29); Chloride 104 mmol/L (98-107); Globulin 3.3 g/dL (2.4-3.5); Glucose 125 mg/dL (70-105); Potassium 3.5 mmol/L (3.5-5.1); Protein, Total 7.2 g/dL (6.0-8.3); Sodium 135 mmol/L (136-145)
[2020-10-06 18:08] LABS: Anisocytosis SLIGHT = 6-15 cells (100X) (0-5/hpf); Hypochromia MODERATE=16-30 cells (100X) (0-5/hpf); MDiff Complete? YES; Microcytosis MODERATE=15-30 cells (100X) (0-5/hpf); Ovalocytes SLIGHT = 2-5 cells (100X) (0-1/hpf); Platelet Morphology Comment Appears Adequate; Polychromasia MODERATE = 3-4 cells (100X) (0-2/hpf); Reflex for Review?? NO; Schistocytes SLIGHT = 2-5 cells (100X) (0-1/hpf); Stomatocytes SLIGHT = 2-5 cells (100X) (0-1/hpf); Target Cells SLIGHT = 2-5 cells (100X) (0-1/hpf); Tear Drops SLIGHT = 2-5 cells (100X) (0-1/hpf)
[2020-10-06 18:17] LABS: Bacteria/HPF 4+ HPF (None Seen); Bilirubin Negative (Negative); Blood, Urine Negative (Negative); Clarity Turbid (Clear); Glucose, Urine (Dipstick) Normal (Negative); Ketone, Urine Negative (Negative); Leukocyte 25 Leu/uL (Negative); Nitrite 2+ (Negative); Protein, Urine (Dipstick) Negative (Neg-Trace); RBC/HPF 0-3 HPF (0-3); Specific Gravity, Urine 1.011 (1.002-1.036); Squamous Epithelial 0-3 HPF (0-3); Urobilinogen Normal mg/dL (Less than 2)
[2020-10-06] MEDS ORDERED: Ondansetron ODT 4 MG TAB ONE (18:34)
[2020-10-06] MEDS ORDERED: Benzonatate 100 MG CAP ONE (18:34)
--- NOTE | 2020-10-06 19:09 | CT ---
CT ANGIOGRAM THORAX WITH IV CONTRAST AND 3-D RECONSTRUCTIONS CLINICAL INDICATION: Chest pain and shortness of breath. Cough and chills. COMPARISON: None FINDINGS: Pulmonary arteries: There is suboptimal timing of the contrast bolus which limits evaluation for pulm onary emboli. Aorta: Thoracic aorta is normal in caliber without evidence of an aortic dissection. Lungs: There are peripherally located groundglass densities seen in the bilateral lower lobes suggest moisés of viral pneumonitis which can be seen with Covid 19. No pleural effusion is seen. Mediastinum: No enlarged lymph nodes are seen by CT size criteria. Thyroid gland: Normal CT appearance. Osseous structures: No suspicious lytic or sclerotic osseous lesion. Chest wall: No abnormality visualized. Upper abdomen: Within normal limits for phase of imaging. IMPRESSION: 1. Covid pneumonia. 2. Suboptimal timing of the contrast bolus limiting evaluation for pulmonary emboli. No definitive la rge filling defect is seen in the central pulmonary arteries; however, pulmonary emboli involving the segmental and subsegmental pulmonary arteries could not be excluded.
[2020-10-06] MEDS ORDERED: Dexamethasone 10 MG/ML VIAL ONE (19:46)
[2020-10-07 01:47] LABS: SARS-CoV-2 MS2 Positive; SARS-CoV-2 N Gene Positive; SARS-CoV-2 S Gene Positive; SARS-CoV-2 by NAA DETECTED (NotDetected); SARS-CoV-2 orf1ab Positive
== END 2020-10-06 20:10 | disposition home or self-care (01) ==
LOC: ERS 16:27
DX: U07.1 COVID-19 (principal); J12.82 Pneumonia due to coronavirus disease 2019; D64.9 Anemia, unspecified; N39.0 Urinary tract infection, site not specified
CPT/HCPCS: 71045; 71275; 80053; 81003; 81015; 84484; 84703; 85025; 87635; 93005; J1100; Q0162; Q9967; U0003

== ENCOUNTER 2020-11-17 02:30 | Emergency (ER) | payer SELFPAY ==
[2020-11-17] MEDS ORDERED: cefTRIAXone\\ROCEPHIN 500 MG VIAL ONE (04:44)
[2020-11-17] MEDS ORDERED: Lidocaine 1% PF 5 ML VIAL ONE (04:46)
[2020-11-17 04:51] LABS: Bilirubin Negative (Negative); Blood, Urine Negative (Negative); Clarity Clear (Clear); Glucose, Urine (Dipstick) Greater than 1000 mg/dL (Negative); Ketone, Urine Negative (Negative); Leukocyte 75 Leu/uL (Negative); Nitrite Negative (Negative); Protein, Urine (Dipstick) Negative (Neg-Trace); RBC/HPF 0-3 HPF (0-3); Specific Gravity, Urine 1.014 (1.002-1.036); Squamous Epithelial 0-3 HPF (0-3); Urobilinogen Normal mg/dL (Less than 2); WBC/HPF 0-3 HPF (0-3); pH, Urine 5.5 (5.0-9.0)
[2020-11-17 04:52] LABS: Bacteria/HPF 1+ HPF (None Seen); Pregnancy Test - Urine (BHCG) Negative (Negative); Pregu Control Background? CLEAR/WHITE (CLR/WHITE); Pregu Control Bar Appear? YES (CONTROL BAR); Specific Gravity 1.014 (1.002-1.036)
[2020-11-17 05:52] LABS: ALT (SGPT) 48 U/L (8-55); AST (SGOT) 35 U/L (5-34); Albumin 3.9 g/dL (3.5-5.0); Alkaline Phosphatase 131 U/L (40-110); Anion Gap 12 mmol/L (10-20); BUN (Urea Nitrogen) 10 mg/dL (7.0-18.7); Bilirubin, Total 0.6 mg/dL (0.2-1.2); Calc. Creatinine Clearance 0 mL/min (70-130); Calcium 8.7 mg/dL (7.8-10.44); Carbon Dioxide 24 mmol/L (22-29); Chloride 107 mmol/L (98-107); Globulin 2.8 g/dL (2.4-3.5); Glucose 283 mg/dL (70-105); Potassium 4.1 mmol/L (3.5-5.1); Protein, Total 6.7 g/dL (6.0-8.3); Sodium 139 mmol/L (136-145)
[2020-11-17 05:53] LABS: Hemoglobin 6.8 g/dL (12.0-16.0); Mean Corpuscular HGB CONC 27.3 g/dL (32.0-36.0); Mean Corpuscular Hemoglobin 16.4 pg (27.0-31.0); Mean Corpuscular Volume 60.2 fL (78.0-98.0); Mean Platelet Volume 9.5 fL (7.4-10.4); Platelet Count 215 thou/uL (130-400); RBC Distribution Width 20.2 % (11.5-14.5); Red Blood Cell (RBC) Count 4.13 mill/uL (4.20-5.40); White Blood Cell (WBC) Count 9.5 thou/uL (4.8-10.8)
[2020-11-17 06:23] LABS: #Basophils 0.1 thou/uL (0.0-0.2); #Eosinphils 0.3 thou/uL (0.0-0.7); #Monocytes 0.5 thou/uL (0.11-0.59); #Neutrophils 5.5 thou/uL (1.40-6.50); %Eosinophils 3.5 % (0.0-10.0); %Monocytes 5.4 % (0.0-10.0); %Neutrophils 58.1 % (42.0-75.0); Anisocytosis SLIGHT = 6-15 cells (100X) (0-5/hpf); Elliptocytes SLIGHT = 2-5 cells (100X) (0-1/hpf); Hypochromia MODERATE=16-30 cells (100X) (0-5/hpf); MDiff Complete? YES; Microcytosis MODERATE=15-30 cells (100X) (0-5/hpf); Tear Drops SLIGHT = 2-5 cells (100X) (0-1/hpf)
[2020-11-21 21:57] LABS: Chlamydia by PCR Not Detected (NotDetected); GC by PCR Not Detected (NotDetected)
== END 2020-11-17 05:36 | disposition home or self-care (01) ==
LOC: ERS 02:30
DX: N72 Inflammatory disease of cervix uteri (principal); R81 Glycosuria
CPT/HCPCS: 36415; 36416; 80053; 81003; 81015; 81025; 85025; 87480; 87491; 87510; 87591; 87660; 96372; 99283; J0696

== ENCOUNTER 2024-04-20 04:36 | Emergency (ER) | payer OTHER ==
[2024-04-20 06:04] LABS: Bacteria/HPF None Seen HPF (None Seen); Bilirubin Negative (Negative); Blood, Urine Negative (Negative); CAUTI Indications for Culture Dysuria,urgency,freq; Clarity Clear (Clear); Glucose, Urine (Dipstick) Greater than 1000 mg/dL (Negative); Ketone, Urine Negative (Negative); Leukocyte Negative Leu/uL (Negative); Nitrite Negative (Negative); Protein, Urine (Dipstick) Negative (Neg-Trace); RBC/HPF 0-3 HPF (0-3); Specific Gravity, Urine 1.012 (1.002-1.036); Squamous Epithelial None Seen HPF (0-3); Urobilinogen Normal mg/dL (Less than 2); WBC/HPF 0-3 HPF (0-3)
[2024-04-20 06:06] LABS: Pregnancy Test - Urine (BHCG) Negative (Negative); Pregu Control Background? CLEAR/WHITE (CLR/WHITE); Pregu Control Bar Appear? YES (CONTROL BAR); Specific Gravity 1.012 (1.002-1.036); Urine Culture Reflex No No
[2024-04-20 15:41] LABS: Chlamydia by PCR, Vaginal Swab Not Detected (NotDetected); GC by PCR, Vaginal Swab Not Detected (NotDetected)
== END 2024-04-20 06:52 | disposition home or self-care (01) ==
LOC: ERS 04:36
DX: B37.31 Acute candidiasis of vulva and vagina (principal); N64.4 Mastodynia; E11.9 Type 2 diabetes mellitus without complications; Z55.0 Illiteracy and low-level literacy; Z75.8 Other problems related to medical facilities and other health care
CPT/HCPCS: 81001; 81025; 87480; 87491; 87510; 87591; 87660; 99283